=== PATIENT | female | born 1945 | race African-American/Black ===

== ENCOUNTER 2023-01-20 21:10 | Emergency (ER) | payer MEDICARE ==
[~2023-01-20] VITALS: Ht 172.7 cm; Wt 72.0 kg
[2023-01-20 21:20] VITALS: O2SAT 100
[2023-01-20 21:50] VITALS: TEMP 98.8
[2023-01-20] MEDS ORDERED: SODIUM CHLORIDE 0.9% 1,000 ML IV ONE (22:30)
[2023-01-20 23:06] LABS: BASOPHILS % 0.5 % (0.0-2.0); EOSINOPHILS % 1.6 % (0.0-5.0); HEMATOCRIT. 35.2 % (36.0-48.0); HEMOGLOBIN. 11.8 g/dL (12.0-16.0); LYMPHOCYTES % 24.4 % (20.0-50.0); MEAN CORPUSCULAR HEMOGLOBIN 31.7 pg (28.0-32.0); MEAN CORPUSCULAR HGB CONC 33.7 g/dL (31.0-37.0); MEAN CORPUSCULAR VOLUME 94.1 fL (81.0-99.0); MEAN PLATELET VOLUME 10.2 fl (7.4-10.4); MONOCYTES % 7.9 % (2.0-8.0); NEUTROPHILS % 65.6 % (40.0-76.0); PLATELET 152 x1000/uL (130-400); RED BLOOD CELL COUNT 3.74 mill/uL (4.2-5.4); WHITE BLOOD COUNT 6.6 x1000/uL (4.5-11.0)
[2023-01-20 23:13] LABS: CHLORIDE 111 mEq/L (98-107); INDEX HEMOLYSI 1 (1-3); INDEX ICTERIC 1 (1-4); INDEX LIPEMIC 1 (1-3); SODIUM 141 mEq/L (136-145)
[2023-01-20 23:16] LABS: PARTIAL THROMBOPLASTIN TIME 23.9 sec (23.4-31.0); PROTHROMBIN TIME 10.9 sec (9.6-11.0)
[2023-01-20 23:18] LABS: ALANINE AMINOTRANSFERASE 29 IU/L (13-61); ALBUMIN 3.6 g/dL (3.4-5.0); ASPARTATE AMINOTRANSFERASE 34 IU/L (15-37); CALCIUM 8.5 mg/dL (8.5-10.1); CARBON DIOXIDE 26 mEq/L (21-32); GLUCOSE 150 mg/dL (70-105); UREA NITROGEN BLOOD 15 mg/dL (7-21)
[2023-01-20 23:21] LABS: BILIRUBIN TOTAL 0.2 mg/dL (0.1-1.0); CREATININE 0.8 mg/dL (0.6-1.3); PROTEIN TOTAL 7.6 g/dL (6.0-8.3)
[2023-01-20 23:23] LABS: NT PRO B-TYPE NATRIURETIC PEP 72 pg/mL (5-125); TROPONIN I HIGH SENSITIVITY 6 ng/L (<54)
[2023-01-21 01:27] LABS: CLARITY URINE CLEAR (CLEAR); COLOR URINE YELLOW (YELLOW); GLUCOSE URINE NEGATIVE (NEGATIVE); KETONES URINE NEGATIVE (NEGATIVE); LEUKOCYTE ESTERASE URINE 1+ (NEGATIVE); NITRITE URINE NEGATIVE (NEGATIVE); OCCULT BLOOD URINE NEGATIVE (NEGATIVE); PH URINE 6.5 (4.5-8.0); PROTEIN URINE NEGATIVE (NEGATIVE); SPECIFIC GRAVITY URINE 1.014 (1.005-1.030); UROBILINOGEN URINE 0.2 E.U./dL (0.2-1.0)
[2023-01-21 01:30] LABS: RBC URINE 0-2 /hpf (0-2); YEAST URINE NONE SEEN
[2023-01-21 01:54] LABS: SQUAMOUS EPITHELIAL CELL URINE FEW /lpf (RARE/1+)
[2023-01-21 01:58] LABS: BACTERIA URINE TRACE
[2023-01-21 04:55] VITALS: BP 113/56; PULSE 52; RESP 16
== END 2023-01-21 04:57 | disposition home or self-care (01) ==
LOC: ER 21:10
DX: R53.1 Weakness (principal); F43.21 Adjustment disorder with depressed mood; K21.9 Gastro-esophageal reflux disease without esophagitis; E78.00 Pure hypercholesterolemia, unspecified; Z88.5 Allergy status to narcotic agent
CPT/HCPCS: 99285; 96360; 71045; 80053; 83880; 85025; 85610; 85730; 84484; 36415; 81003; J7030